=== PATIENT | male | born 1985 ===

== ENCOUNTER 2024-12-16 09:53 | Outpatient (CLI) | payer OTHER, SELFPAY | END 2024-12-16 09:54 | disposition home or self-care (01) | LOC: NFLDREF 12-20 11:26 | PROVIDERS: Visit Provider Family Medicine | DX: R53.83 Other fatigue (principal); R68.82 Decreased libido; Z13.1 Encounter for screening for diabetes mellitus; Z13.6 Encounter for screening for cardiovascular disorders | CPT/HCPCS: 80048; 80061; 84403 ==